=== PATIENT | female | born 1990 | race Caucasian/White ===

== ENCOUNTER 2022-01-08 20:31 | Emergency (ER) | payer OTHER ==
[2022-01-08] MEDS ORDERED: Sodium Chloride 0.9% 10 ML Syringe FLUSH PRN (21:40)
[2022-01-08] MEDS ORDERED: Ketorolac 30 MG/ML SDV IVPUSH ONE (21:40)
[2022-01-08] MEDS ORDERED: Ondansetron 4 MG/2 ML SDV IVPUSH ONE (21:40)
[2022-01-08] MEDS ORDERED: Sodium Chloride 0.9% 1,000 ML IV SCH (21:45)
[2022-01-08] MEDS ORDERED: Morphine 4 MG/ML VIAL IVPUSH STA (22:38)
== END 2022-01-08 23:20 | disposition home or self-care (01) ==
LOC: FB.ED 20:31
DX: M62.82 Rhabdomyolysis (principal)
CPT/HCPCS: 36415; 80048; 82550; 85025; 96374; 96375; 99282; 99283-25; J1885; J2270; J2405; J7030